=== PATIENT | male | born 1975 | race Two or more races ===

== ENCOUNTER 2019-11-27 10:53 | Emergency (ER) | payer OTHER ==
[~2019-11-27] VITALS: Ht 180.3 cm; Wt 86.2 kg
--- NOTE | 2019-11-27 11:17 | NUR ---
ED Nurse Note: PT WALKED IN TO ED FOR C/O RIGHT KNEE PAIN X 2 WEEKS. PT DENIES ANY TRAUMA OR INJURY. PT STATES HIS PAIN HAS BEEN PROGRESSIVELY BECOMING WORSE ERA Addendum: 11/27/19 at 1118 by BRANDENAO ED Nurse Note: PT WALKED IN TO ED FOR C/O RIGHT KNEE PAIN X 2 WEEKS. PT DENIES ANY TRAUMA OR INJURY. PT STATES HIS PAIN HAS BEEN PROGRESSIVELY BECOMING WORSE EACH DAY.
[2019-11-27 11:18] VITALS: BP 135/80
[2019-11-27] MEDS ORDERED: Ketorolac 30mg Inj IV ONE (12:15)
--- NOTE | 2019-11-27 12:28 | NUR ---
ED Nurse Note: BLOOD SAMPLE SENT DOWN TO LAB .
--- NOTE | 2019-11-27 12:34 | Diagnostic Imaging Report ---
EXAM: XR Right Knee, 3 views CLINICAL HISTORY: PAIN TECHNIQUE: Three views of the right knee. COMPARISON: No relevant prior studies available. FINDINGS: Bones/joints: No convincing acute fracture; irregularity and mild heterogeneity of the patella. Small effusion. Soft tissues: Soft tissue swelling No radiodense foreign body. IMPRESSION: No convincing acute fracture.
[2019-11-27 12:43] LABS: BASOPHILS % (AUTO) 1.4 % (0.0-2.0); EOSINOPHILS % (AUTO) 2.5 % (0.0-3.0); HEMATOCRIT 40.1 % (42.0-52.0); HEMOGLOBIN 14.2 G/DL (14.2-18.0); LYMPHOCYTES % (AUTO) 35.9 % (20.0-45.0); MEAN CORPUSCULAR VOLUME 93 FL (80-99); MONOCYTES % (AUTO) 5.1 % (1.0-10.0); NEUTROPHILS % (AUTO) 55.1 % (45.0-75.0); PLATELET COUNT 250 K/UL (150-450); RED CELL DISTRIBUTION WIDTH 11.6 % (11.6-14.8); WHITE BLOOD COUNT 11.6 K/UL (4.8-10.8)
[2019-11-27] MEDS ORDERED: IBUPROFEN600 MG ORAL (13:18)
[2019-11-27] MEDS ORDERED: ACETAMINOPHEN500 M3 ORAL (13:18)
[2019-11-27 13:25] VITALS: BP 130/80
--- NOTE | 2019-11-27 13:25 | NUR ---
ER DISCHARGE NOTE: Patient is cleared to be discharged per ERMD, pt is aox4, on room air, with stable vital signs. pt was given dc and prescription instructions, pt was able to verbalize understanding, pt id band and iv site removed without complications. pt is able to ambulate with steady gait. pt took all belongings.
--- NOTE | 2019-12-23 08:39 | Emergency Room Report ---
History of Present Illness General Chief Complaint: Pain Source: Patient Present Illness HPI Patient is a 44-year-old male who presents after increased right-sided knee pain and swelling. Gradual onset of symptoms over the past 2 weeks. Denies recent injury or trauma. Pain is worse with movement. Reports having a decreased range of motion and decreased ability to flex the knee. Denies any instability. No numbness or tingling distally. He had noted initially having more swelling which had somewhat improved. Allergies: Coded Allergies: No Known Allergies (Unverified , 11/27/19) Patient History Past Medical History: see triage record Reviewed Nursing Documentation: PMH: Agreed; PSxH: Agreed Nursing Documentation-PMH Past Medical History: No Stated History Review of Systems All Other Systems: negative except mentioned in HPI Physical Exam General Appearance: well appearing, no apparent distress, alert, GCS 15, non- toxic Head: normocephalic, atraumatic ENT: hearing grossly normal, normal voice Neck: full range of motion, supple Respiratory: no respiratory distress, speaking full sentences Cardiovascular #1: normal inspection, regular rate, rhythm, no edema Musculoskeletal: swelling, no calf tenderness, decreased range of mation Neurologic: alert, motor strength/tone normal, clinical coder III-XII nml as tested, normal gait Psychiatric: mood/affect normal Skin: no rash Medical Decision Making Diagnostic Impression: Primary Impression: Arthritis ER Course Patient presented for right knee pain. Differential diagnosis include was not limited to arthritis, fracture, patellofemoral syndrome, among others. Patient has a benign exam and does not appear to require any laboratory testing at this time. Patient does appear to have some evidence of right knee pain and swelling. x-ray imaging read by radiology showed no evidence of acute fracture. Patient is advised to follow-up with his primary care physician for further evaluation and treatment of arthritis. He is given prescription for nonsteroidal anti-inflammatory medications. Advised to keep the area elevated and ice this until swelling improved. The patient is advised to follow up with primary care doctor in 2-3 days. Patient is advised to return if any worsening condition or if any changes in status that are concerning. This report is dictated with [employer] consulting technical director software which may occasionally lead to discrepancies related to use of this software. Status: improved Disposition: HOME, SELF-CARE Condition: Stable Scripts Acetaminophen* (ACETAMINOPHEN EXTRA STRENGTH*) 500 Mg Tablet 500 MG ORAL Q8H PRN for Fever/Headache/Mild Pain, #30 TAB Prov: Finesse Kaiser MD 11/27/19 Ibuprofen* (MOTRIN*) 600 Mg Tablet 600 MG ORAL Q8H PRN for For Pain, #30 TAB 0 Refills Prov: Finesse Kaiser MD 11/27/19 Referrals: NOT CHOSEN IPA/MD,REFERRING Patient Instructions: Arthritis, [id number] Additional Instructions: Follow up with your doctor for recheck in 2-3 days. Return if worse. Finesse Kaiser MD Dec 23, 2019 08:39
== END 2019-11-27 13:25 | disposition home or self-care (01) ==
LOC: EMR 12:56
DX: M19.90 Unspecified osteoarthritis, unspecified site (principal)
CPT/HCPCS: 36415; 73562; 84550; 85025; 96374; J1885; Z7502; 99284